=== PATIENT | male | born 1960 | race Caucasian/White ===

== ENCOUNTER 2016-02-29 13:06 | Emergency (ER) | payer OTHER ==
[2016-02-29 13:29] VITALS: BP 132/85
--- NOTE | 2016-02-29 15:57 | UC ---
Cardiac HPI - HPI Summary HPI Summary: FOUR DAYS LEFT SIDED CHEST PAIN WITH EXERTION. 30 PACKYEAR HISTORY. BROTHERS BOTH HAD MYOCARDIAL INFARCTIONS. MOTHER HAD STROKE. NO SOB. NO RECENT COLDS. NO LEG SWELLING. - History of Current Complaint Chief Complaint: UCChestPain Stated Complaint: CHEST PAIN, AND ARM PAIN Time Seen by Provider: 02/29/16 15:20 Hx Obtained From: Patient Onset/Duration: Sudden Onset, Lasting Days, Resolved Initial Severity: Moderate Current Severity: None Pain Intensity: 2 Chest Pain Location: Left Anterior Character: Dull/Aching Aggravating: Exertion Alleviating: Rest, Spontaneous Resolution Associated Signs & Symptoms: Positive: Chest Pain, SOB. Negative: Vision Changes, Anxiety, Recent Stress, Headaches, Numbness, Tingling, Weakness, Dizziness, Swelling, Syncope, Fever, Diaphoresis, Nausea/Vomiting, Palpitations , Cough, Hemoptysis, Back Pain, Abdominal Pain, Calf Pain/Swelling - Risk Factors Pulmonary Embolism Risk Factors: Smoking Cardiac Risk Factors: Smoking, Family History Atrial Fibrillation: Negative TAD Risk Factors: Negative AMI/ACS Risk Factors: Family History, Smoking - Allergy/Home Medications Allergies/Adverse Reactions: Allergies Allergy/AdvReac Type Severity Reaction Status Date / Time No Known Allergies Allergy Verified 02/29/16 13:29 PMH/Surg Hx/FS Hx/Imm Hx Previously Healthy: Yes - Surgical History Surgical History: Yes Surgery Procedure, Year, and Place: hernia - Family History Known Family History: Positive: Cardiac Disease - Social History Occupation: Employed Full-time Lives: With Family Alcohol Use: Rare Substance Use Type: None Smoking Status (MU): Heavy Every Day Tobacco Smoker Type: Cigarettes Amount Used/How Often: 1/2ppd Household Exposure Type: Cigarettes Cessation Counseling: Counseled 3+Min - 10 Min Review of Systems Constitutional: Negative Skin: Negative Eyes: Negative ENT: Negative Respiratory: Negative Cardiovascular: Chest Pain - LEFT SIDED RADIATES TO LEFT ARM Gastrointestinal: Negative Genitourinary: Negative Motor: Negative Neurovascular: Negative Musculoskeletal: Negative Neurological: Negative Psychological: Negative All Other Systems Reviewed And Are Negative: Yes Physical Exam Triage Information Reviewed: Yes Appearance: Well-Appearing, No Pain Distress, Well-Nourished Vital Signs: Initial Vital Signs Pulse 86 02/29/16 13:18 Resp 18 02/29/16 13:18 BP 132/85 02/29/16 13:18 Pulse Ox 96 02/29/16 13:18 Vital Signs Reviewed: Yes Eye Exam: Normal ENT Exam: Normal ENT: Positive: Normal ENT inspection, Hearing grossly normal, Pharynx normal, TMs normal Dental Exam: Normal Neck exam: Normal Neck: Positive: Supple, Nontender, No Lymphadenopathy Respiratory Exam: Normal Respiratory: Positive: Chest non-tender, Lungs clear, Normal breath sounds, No respiratory distress, No accessory muscle use Cardiovascular Exam: Normal Cardiovascular: Positive: RRR, No Murmur, Pulses Normal, Brisk Capillary Refill Abdominal Exam: Normal Abdomen Description: Positive: Nontender, No Organomegaly Musculoskeletal Exam: Normal Musculoskeletal: Positive: Strength Intact, ROM Intact Neurological Exam: Normal Psychological Exam: Normal Skin Exam: Normal - Differential Diagnoses - Chest Pain Differential Diagnosis/HQI/PQRI: Acute OH, ACS, Angina, Chest Wall, Pulmonary Embolism - Clinical Impression Provider Diagnoses: CHEST PAIN - Physician Notifications Discussed Patient Care With: HILLARY PÉREZ Time Discussed With Above Provider: 15:35 Instructed by Provider To: MD Will See In ED Discharge - Discharge Plan Condition: Stable Disposition: AGAINST MEDICAL ADVICE Referrals: Meño Hernandez MD [Primary Care Provider] -
== END 2016-02-29 15:39 | disposition left against medical advice (07) ==
LOC: UCEAST 13:06
DX: R07.89 Other chest pain (principal); R06.02 Shortness of breath; F17.210 Nicotine dependence, cigarettes, uncomplicated
CPT/HCPCS: 93005; 99212; G0463

== ENCOUNTER 2016-02-29 16:50 | Emergency (ER) | payer OTHER ==
[2016-02-29 20:30] LABS: Hematocrit 44 % (42-52); Hemoglobin 14.7 g/dl (14.0-18.0); Mean Corpuscular HGB Conc 33 g/dl (31-36); Mean Corpuscular Hemoglobin 31 pg (27-31); Mean Corpuscular Volume 92 fL (80-94); Mean Platelet Volume 9 um3 (7.4-10.4); Red Blood Count 4.78 10^6/ul (4.0-5.4); Red Cell Distribution Width 14 % (10.5-15); White Blood Count 9.5 10^3/ul (3.5-10.8)
[2016-02-29 20:47] LABS: Albumin 4.2 g/dL (3.2-5.2); BUN/Creatinine Ratio 17.9 (8-20); Calcium 9.3 mg/dL (8.6-10.3); EGFR African American 88.2 (>60); EGFR Non-African American 68.6 (>60); Globulin 2.8 g/dL (2-4); Potassium 4.1 mmol/L (3.5-5.0); Total Bilirubin 0.5 mg/dL (0.2-1.0)
[2016-02-29 20:48] LABS: Troponin I 0.01 ng/mL (<0.04)
--- NOTE | 2016-02-29 20:54 | RAD ---
Indication: Left arm pain. Single frontal view of the chest performed at 2036 hours was reviewed. Comparison is made with previous exam dated June 20, 2011. No mediastinal shift is noted. Heart is of normal size and configuration. Lung valdivia appear clear. IMPRESSION: NO ACTIVE CARDIOPULMONARY DISEASE IS NOTED.
[2016-03-01 00:29] VITALS: BP 124/69
--- NOTE | 2016-03-01 03:42 | CONS ---
CONSULTATION REPORT: DATE OF CONSULT: 02/29/16 CHIEF COMPLAINT: Chest pain. HISTORY OF PRESENT ILLNESS: The patient is a 55-year-old gentleman who this morning started developing chest pain and went to [facility]. He says actually it has been on and off going for 2 weeks. At its worst, it is a 6/10 in severity. It is a pinching like pain and starts in his left chest and goes to his left arm. He has no associated shortness of breath, no sweating, no clamminess, no dizziness. It goes away completely on its own. It does not come on with exertion. He was sent over to the ER by the [facility] and he had an EKG which was unremarkable and his first troponin was 0.01. PAST MEDICAL HISTORY: He has no past medical history. MEDICATIONS: No medications. ALLERGIES: No known drug allergies. FAMILY HISTORY: Significant for mother who is alive at 75, has a coronary artery disease with 8 stents. Father, he never knew. He had a brother who of an MA at age 51 and another brother who is younger who had an MA as well and a sister alive and well. SOCIAL HISTORY: He smokes 10 to 12 cigarettes a day one and a half packs a day years ago. Has been smoking for over 36 years. No alcohol. Occasional marijuana. Works in construction. He is not . He has no children. REVIEW OF SYSTEMS: A 14-point review of systems was completed with the patient. All pertinent positives and negatives are in the history of present illness. Otherwise, it is negative. PHYSICAL EXAM: Pleasant gentleman lying in bed in no acute distress. Vital Signs: Blood pressure 120/67, pulse ox 94% on room air, respiratory rate 15 breaths per minute, heart rate 64 beats a minute, temperature 98.4 degrees. HEENT: Normocephalic, atraumatic. Pupils equal, round and reactive to light. Moist mucous membranes. Neck: Supple. No JVD, bruits, palpable thyroid or lymphadenopathy. His chest is clear to auscultation and percussion bilaterally. Cardiovascular: S1, S2 appreciated. Regular rate rhythm. Abdominal Exam: Positive bowel sounds in all 4 quadrants. Soft, nontender, nondistended. Extremities: No cyanosis, clubbing or edema. +2 peripheral pulses bilaterally. Neuro: Alert and oriented x3. Moves all extremities. Skin : No rashes or abnormalities. DIAGNOSTIC STUDIES/LAB DATA: White count 9.5, hemoglobin 14.7, hematocrit 44, platelets 269. Sodium 137, potassium 4.1, chloride 105, CO2 is 28, BUN 20, creatinine 1.12, glucose is 89, troponin is 0.01. INR is 0.93. Chest x-ray was interpreted by Radiology, no active cardiopulmonary disease is noted. EKG shows normal sinus rhythm at 79 beats per minute. Normal axis. No acute ST -T wave changes. ASSESSMENT AND PLAN: Chest pain. With the patient's family history and tobacco abuse, I do recommend he stay overnight and get ruled out and get a stress test in the morning but he has declined.He left AMA. He understands the risks of doing so including and/or disability. He will go and follow up with his PCP and seek Cardiology appointment and a stress test as an outpatient. He will also stop smoking. TIME SPENT: Over 65 minutes was spent on this consult, more than 35 minutes was spent in direct [id number] contact with the patient in evaluation, physical exam, counseling, and coordination of care. CC: Dr. Kandi Hall* [id number]/CPS #: [id number] FABIAN
--- NOTE | 2016-03-02 06:51 | ED ---
Cheryl Kern Janilya, scribed for Yonathan Eli MD on 02/29/16 at 2127 . HPI Chest Pain - HPI Summary HPI Summary: A 55 y/o male came in to [facility] presenting w/ intermittent CP starting a few weeks ago. Pt describes the pain as "twinges of pain in chest". Pt reports the pain has worsened and the frequency has increased which motivated his visit to the hospital today. The last severe episode happened last night; the pain radiated to his arm. And he felt some chest discomfort earlier today. Pt denies nausea. SHx tobacco use. FMHx NC. - History of Current Complaint Chief Complaint: EDChestWallPain Time Seen by Provider: 02/29/16 20:16 Hx Obtained From: Patient Onset/Duration: Started Weeks Ago, Still Present Timing: Intermittent, Lasting Minutes Initial Severity: Moderate Current Severity: Moderate Pain Intensity: 3 Pain Scale Used: 0-10 Numeric Chest Pain Location: Diffuse Chest Pain Radiates: Yes Chest Pain Radiates To:: Arm - Allergy/Home Medications Allergies/Adverse Reactions: Allergies Allergy/AdvReac Type Severity Reaction Status Date / Time No Known Allergies Allergy Verified 02/29/16 13:29 PMH/Surg Hx/FS Hx/Imm Hx Cardiovascular History: Denies: Hx Hypotension, Hx Hypertension, Hx Pacemaker/ICD Sensory History: Denies: Hx Contacts or Glasses Opthamlomology History: Denies: Hx Contacts or Glasses - Surgical History Surgery Procedure, Year, and Place: hernia Infectious Disease History: Denies: Traveled Outside the [place] in Last 30 Days - Family History Known Family History: Positive: Cardiac Disease - 2 brothers both NC, mother 8 stents - Social History Lives: With Family Alcohol Use: Rare Substance Use Type: Reports: Marijuana Substance Use Comment - Amount & Last Used: occasional Smoking Status (MU): Heavy Every Day Tobacco Smoker Type: Cigarettes Amount Used/How Often: 1/2ppd Review of Systems Positive: Chest Pain Negative: Nausea All Other Systems Reviewed And Are Negative: Yes Physical Exam - Summary Physical Exam Summary: GENERAL EXAM GENERAL: Awake, alert, oriented, no acute distress, very pleasant HEENT: Head is normocephalipolc, atraumatic, anicteric sclera, clear conjunctiva , mucous membranes moist, no erythema, no discharge, no lesions, neck is supple , trachea is midline, no JVD CARDIAC: Regular rate and rhythm, S1, S2, no rub, no murmur, no gallop, 2+ radial and pedal pulses bilaterally RESPIRATORY: Clear to auscultation bilaterally with no rales, rhonchi, or wheezes, non-tender ABDOMEN: Bowel sounds positive, no bruit, soft, non-tender, no CVA tenderness EXTREMITIES: No edema, warm, dry, moving all extremities in a grossly normal manner NEUROLOGICAL: Mood is appropriate, moving all extremities in a grossly normal manner Triage Information Reviewed: Yes Vital Signs On Initial Exam: Initial Vitals Temp Pulse Resp BP Pulse Ox 98.4 F 79 16 143/74 100 02/29/16 17:07 02/29/16 17:07 02/29/16 17:07 02/29/16 17:07 02/29/16 17:07 Vital Signs Reviewed: Yes - [place] Coma Scale Coma Scale Total: 15 Diagnostics - Vital Signs Vital Signs Temp Pulse Resp BP Pulse Ox 02/29/16 20:25 94 02/29/16 20:20 64 17 96 02/29/16 17:07 98.4 F 79 16 143/74 100 - Laboratory Lab Results: Lab Results 02/29/16 02/29/16 02/29/16 Range/Units 20:15 20:15 20:15 WBC 9.5 (3.5-10.8) 10^3/ul RBC 4.78 (4.0-5.4) 10^6/ul Hgb 14.7 (14.0-18.0) g/dl Hct 44 (42-52) % MCV 92 (80-94) fL MCH 31 (27-31) pg MCHC 33 (31-36) g/dl RDW 14 (10.5-15) % Plt Count 269 (150-450) 10^3/ul MPV 9 (7.4-10.4) um3 Neut % (Auto) 53.5 (38-83) % Lymph % (Auto) 33.8 (25-47) % Wheeler % (Auto) 8.7 (1-9) % Eos % (Auto) 2.7 (0-6) % Baso % (Auto) 1.3 (0-2) % Absolute Neuts (auto) 5.1 (1.5-7.7) 10^3/ul Absolute Lymphs (auto) 3.2 (1.0-4.8) 10^3/ul Absolute Monos (auto) 0.8 (0-0.8) 10^3/ul Absolute Eos (auto) 0.3 (0-0.6) 10^3/ul Absolute Basos (auto) 0.1 (0-0.2) 10^3/ul Absolute Nucleated RBC 0 10^3/ul Nucleated RBC % 0 INR (Anticoag Therapy) 0.93 (0.89-1.11) APTT 33.8 (26.0-36.3) seconds Sodium 137 (133-145) mmol/L Potassium 4.1 (3.5-5.0) mmol/L Chloride 105 (101-111) mmol/L Carbon Dioxide 28 (22-32) mmol/L Anion Gap 4 (2-11) mmol/L BUN 20 (6-24) mg/dL Creatinine 1.12 (0.67-1.17) mg/dL Est GFR ( Amer) 88.2 (>60) Est GFR (Non-Af Amer) 68.6 (>60) BUN/Creatinine Ratio 17.9 (8-20) Glucose 89 (70-100) mg/dL Lactic Acid (0.5-2.0) mmol/L Calcium 9.3 (8.6-10.3) mg/dL Total Bilirubin 0.50 (0.2-1.0) mg/dL AST 22 (13-39) U/L ALT 37 (7-52) U/L Alkaline Phosphatase 71 (34-104) U/L Total Creatine Kinase 272 H (10-223) U/L Troponin I 0.01 (<0.04) ng/mL B-Natriuretic Peptide ( - 100) pg/mL Total Protein 7.0 (6.4-8.9) g/dL Albumin 4.2 (3.2-5.2) g/dL Globulin 2.8 (2-4) g/dL Albumin/Globulin Ratio 1.5 (1-3) 02/29/16 02/29/16 Range/Units 20:15 20:15 WBC (3.5-10.8) 10^3/ul RBC (4.0-5.4) 10^6/ul Hgb (14.0-18.0) g/dl Hct (42-52) % MCV (80-94) fL MCH (27-31) pg MCHC (31-36) g/dl RDW (10.5-15) % Plt Count (150-450) 10^3/ul MPV (7.4-10.4) um3 Neut % (Auto) (38-83) % Lymph % (Auto) (25-47) % Wheeler % (Auto) (1-9) % Eos % (Auto) (0-6) % Baso % (Auto) (0-2) % Absolute Neuts (auto) (1.5-7.7) 10^3/ul Absolute Lymphs (auto) (1.0-4.8) 10^3/ul Absolute Monos (auto) (0-0.8) 10^3/ul Absolute Eos (auto) (0-0.6) 10^3/ul Absolute Basos (auto) (0-0.2) 10^3/ul Absolute Nucleated RBC 10^3/ul Nucleated RBC % INR (Anticoag Therapy) (0.89-1.11) APTT (26.0-36.3) seconds Sodium (133-145) mmol/L Potassium (3.5-5.0) mmol/L Chloride (101-111) mmol/L Carbon Dioxide (22-32) mmol/L Anion Gap (2-11) mmol/L BUN (6-24) mg/dL Creatinine (0.67-1.17) mg/dL Est GFR ( Amer) (>60) Est GFR (Non-Af Amer) (>60) BUN/Creatinine Ratio (8-20) Glucose (70-100) mg/dL Lactic Acid 0.8 (0.5-2.0) mmol/L Calcium (8.6-10.3) mg/dL Total Bilirubin (0.2-1.0) mg/dL AST (13-39) U/L ALT (7-52) U/L Alkaline Phosphatase (34-104) U/L Total Creatine Kinase (10-223) U/L Troponin I (<0.04) ng/mL B-Natriuretic Peptide 15 ( - 100) pg/mL Total Protein (6.4-8.9) g/dL Albumin (3.2-5.2) g/dL Globulin (2-4) g/dL Albumin/Globulin Ratio (1-3) Result Diagrams: 02/29/16 20:15 02/29/16 20:15 Lab Statement: Any lab studies that have been ordered have been reviewed, and results considered in the medical decision making process. - Radiology CXR Xray Interpretation: No Acute Changes Radiology Interpretation Completed By: Radiologist - IMPRESSION: No active cardiopulmonary disease is noted. - EKG 1705 Cardiac Rate: NL EKG Rhythm: Sinus Rhythm - 79 bpm EKG Interpretation: No acute ischemia Chest Pain Course/Dx - Diagnoses Provider Diagnoses: Chest pain Discharge - Discharge Plan Condition: Stable Disposition: ADMITTED TO [facility] Referrals: Kandi Hall MD [Primary Care Provider] - The documentation as recorded by the Cheryl roche Janilya accurately reflects the service I personally performed and the decisions made by Sreedhar hathaway Steven, MD.
== END 2016-03-01 00:15 | disposition left against medical advice (07) ==
LOC: ED 16:50
DX: R07.9 Chest pain, unspecified (principal); F17.210 Nicotine dependence, cigarettes, uncomplicated; M79.602 Pain in left arm
CPT/HCPCS: 36415; 71010; 80053; 82550; 82553; 83605; 83874; 83880; 84484; 85025; 85610; 85730; 93005; 99283